=== PATIENT | male | born 1975 | race African-American/Black ===

== ENCOUNTER 2018-06-08 01:28 | Emergency (ER) | payer OTHER ==
[2018-06-08] MEDS ORDERED: Lidocaine 1% 50 ML MDV INJECT ONE (01:40)
[2018-06-08] MEDS ORDERED: Diphtheria,Pertussis(Acell),Tetanus Vaccine 0.5 ML Syringe IM ONE (01:43)
--- NOTE | 2018-06-08 01:51 | EDM.PDOC ---
ED HPI GENERAL MEDICAL PROBLEM - General Chief Complaint: Laceration Stated Complaint: AMBULANCE Time Seen by Provider: 06/08/18 01:32 Source of Information: Reports: Patient, RN Notes Reviewed - History of Present Illness INITIAL COMMENTS - FREE TEXT/NARRATIVE: 42-year-old male suffered injury to head about a couple of hours ago. He was at work working underneath a semitruck. Part of the drive shaft fell about 6 inches striking his head. He was wearing a helmet but the helmet was knocked sideways and he did suffer 2 small laceration injuries to the top of his head. He did have headache initially but that is now gone. There was no LOC. No neck back, other pain or injury. Headache Pain Score (Numeric/FACES): 6 - Related Data Allergies Allergy/AdvReac Type Severity Reaction Status Date / Time No Known Allergies Allergy Verified 06/08/18 01:28 Home Meds: Home Meds . [No Known Home Meds] 06/08/18 [History] Past Medical History - Past Health History Medical/Surgical History: Denies Medical/Surgical History Social & Family History - Tobacco Use Smoking Status *Q: Never Smoker - Recreational Drug Use Recreational Drug Use: No ED ROS GENERAL - Review of Systems Review Of Systems: See Below Constitutional: Reports: No Symptoms HEENT: Reports: Other (He did suffer to laceration injuries to the top area of his scalp) Respiratory: Denies: Shortness of Breath Cardiovascular: Denies: Chest Pain GI/Abdominal: Denies: Nausea, Vomiting Musculoskeletal: Denies: Neck Pain, Back Pain Neurological: Reports: Headache (Gone) ED EXAM, SKIN/RASH Exam: See Below General Appearance: Alert, No Apparent Distress Eye Exam: Bilateral Eye: PERRL Ears: Normal External Exam Nose: Normal Inspection Head: Other (Half-inch small laceration injury right scalp and larger 2-1/2 cm laceration injury superior left scalp, both are gaping, no active bleeding). No : Facial Tenderness Neck: Supple, Non-Tender Respiratory/Chest: No Respiratory Distress Extremities: Normal Inspection, Normal Range of Motion Neurological: Alert, Oriented, No Motor/Sensory Deficits Skin: Warm, Dry ED SKIN PROCEDURES - Laceration/Wound Repair Right Upper Head Lac/Wound length In cm: 3 Appearance: Linear, Irregular Distal NVT: Neuro & Vascular Intact Anesthetic Type: Local Local Anesthesia - Lidocaine (Xylocaine): 1% Plain Skin Prep: Saline Suture Size: 3-0 # of Sutures: 6 Suture Type: Nylon Course - Vital Signs Last Recorded V/S: Last Vital Signs Temp 97.7 F 06/08/18 01:28 Pulse 51 L 06/08/18 01:28 Resp 18 06/08/18 01:28 BP 145/104 H 06/08/18 01:28 Pulse Ox 97 06/08/18 01:28 - Orders/Labs/Meds Orders: Active Orders 24 hr Category Date Time Status Vaccines to be Administered [RC] PER UNIT ROUTINE Care 06/08/18 01:43 Active Meds: Medications Discontinued Medications Generic Name Dose Route Start Last Admin Trade Name Freq PRN Reason Stop Dose Admin Diphtheria/Tetanus/Acell Pertussis 0.5 ml 06/08/18 01:43 06/08/18 01:50 Adacel IM 06/08/18 01:44 0.5 ml .ONCE ONE Administration Lidocaine HCl 50 ml 06/08/18 01:40 06/08/18 01:53 Xylocaine 1% INJECT 06/08/18 01:41 50 ml ONETIME ONE Administration - Re-Assessments/Exams Free Text/Narrative Re-Assessment/Exam: 06/08/18 02:33 Suture repair laceration #2 Location right upper scalp Length 2 cm Anesthetized with 1% lidocaine, irrigated, cleansed with normal saline. 4 3-0 Ethilon sutures placed Departure - Departure Time of Disposition: 15:00 Disposition: Home, Self-Care 01 Condition: Fair Clinical Impression: Scalp laceration Qualifiers: Encounter type: initial encounter Qualified Code(s): S01.01XA - Laceration without foreign body of scalp, initial encounter - Discharge Information Referrals: PCP,Not In Area [Primary Care Provider] - Forms: ED Department Discharge, ED Return to Work/School Form Additional Instructions: Laceration care instructions, stitches should come out in about 10 days, they can be removed at any type of convenience or walk-in clinic, have rechecked any sign of infection. You are released back to work at this time, no restrictions. - My Orders Last 24 Hours: My Active Orders 06/08/18 01:43 Vaccines to be Administered [RC] PER UNIT ROUTINE - Assessment/Plan Last 24 Hours: My Active Orders 06/08/18 01:43 Vaccines to be Administered [RC] PER UNIT ROUTINE
== END 2018-06-08 02:37 | disposition home or self-care (01) ==
LOC: JD.ED 01:28
DX: S01.01XA Laceration without foreign body of scalp, initial encounter (principal); Z23 Encounter for immunization; W20.8XXA Other cause of strike by thrown, projected or falling object, initial encounter
CPT/HCPCS: 12002; 90471; 90700; 99282; 99284-25